=== PATIENT | male | born 1965 | race Caucasian/White ===

== ENCOUNTER 2016-11-22 14:52 | Emergency (ER) | payer OTHER ==
[2016-11-22 15:04] VITALS: BP 148/97; PULSE 91; TEMP 98.6; BMI 34.5
[2016-11-22] MEDS ORDERED: CEPHALEXIN MONOHYDRATE 500 MG CAPSULE (UD) PO ONE (15:16)
--- NOTE | 2016-11-22 15:16 | PDOC ---
History of Present Illness - General Chief Complaint: Bite Stated Complaint: rt fa bug bite Time Seen by Provider: 11/22/16 15:00 History Source: Patient, Old Records Exam Limitations: No Limitations - History of Present Illness Initial Comments: 11/22/16 15:11 51-year-old male with no significant past medical history presents to the emergency department for evaluation of a bee sting to his right upper extremity. The patient states that 3 days ago he was stung by a bee to the flexor surface of his right forearm and subsequently he has had increased redness and streaking up his arm. He denies fevers or chills. The patient was seen at an urgent care today who referred him to the ED for further evaluation. Past History - Past Medical History Allergies/Adverse Reactions: Allergies Allergy/AdvReac Type Severity Reaction Status Date / Time No Known Allergies Allergy Verified 11/22/16 14:57 Home Medications: Ambulatory Orders Cephalexin [Keflex] 500 mg PO QID #30 capsule 11/22/16 HTN: Yes (white coat syndrome) - Surgical History Appendectomy: Yes - Psycho/Social/Smoking Cessation Hx Anxiety: No Suicidal Ideation: No Smoking History: Never smoked Have you smoked in the past 12 months: No Number of Cigarettes Smoked Daily: 0 Information on smoking cessation initiated: No Hx Alcohol Use: No Drug/Substance Use Hx: No Substance Use Type: None Review of Systems - Review of Systems Able to Perform ROS?: Yes Is the patient limited Japanese proficient: No Constitutional: No: Symptoms Reported HEENTM: No: Symptoms Reported Respiratory: No: Symptoms reported Cardiac (ROS): No: Symptoms Reported ABD/GI: No: Symptoms Reported : No: Symptoms Reported Musculoskeletal: No: Symptoms Reported Integumentary: Yes: Symptoms Reported, See HPI *Physical Exam - Vital Signs Last Vital Signs Temp Pulse Resp BP Pulse Ox 98.6 F 91 H 20 148/97 97 11/22/16 14:53 11/22/16 14:53 11/22/16 14:53 11/22/16 14:53 11/22/16 14:53 - Physical Exam Comments: 11/22/16 15:12 GENERAL: Well developed, well nourished. Awake and alert. No acute distress. EXTREMITIES: RUE: There is a 4 x 4 cm area of erythema and induration to the right wrist with a puncture site where the patient was stung. There is erythema streaking up the inner arm just above the elbow. There are no areas of fluctuance. Cooperative. Good eye contact. Appropriate mood and affect. Medical Decision Making - Medical Decision Making 11/22/16 15:13 51-year-old male with no significant past medical history with cellulitis after a bee sting. The patient is afebrile and is well-appearing; he is immunocompetent. Plan: 1. We'll start the patient on Keflex 500 mg 4 times a day for 7 days 2. Follow-up with Dr. Perez this week 3. Return to the emergency department if symptoms persist, worsen, or new symptoms arise. *DC/Admit/Observation/Transfer Diagnosis at time of Disposition: Cellulitis of right forearm, Bee sting - Discharge Dispostion Disposition: HOME Condition at time of disposition: Stable Admit: No - Prescriptions Prescriptions: Cephalexin [Keflex] 500 mg PO QID #30 capsule - Patient Instructions Printed Discharge Instructions: DI for Insect Bites and Stings Additional Instructions: You're being prescribed an antibiotic for a skin infection called cellulitis following a bee sting. The antibiotic is Keflex 500 mgtake 1 tablet 4 times daily for the next week. Please follow-up with your primary care physician this week and return to the emergency department if your symptoms persist, worsen, or new symptoms arise.
[2016-11-22] MEDS ORDERED: CEPHALEXIN MONOHYDRATE 500 MG CAPSULE (UD) ONE (15:26)
== END 2016-11-22 15:38 | disposition home or self-care (01) ==
LOC: FER 14:52
DX: L03.113 Cellulitis of right upper limb (principal); S40.861A Insect bite (nonvenomous) of right upper arm, initial encounter; W57.XXXA Bitten or stung by nonvenomous insect and other nonvenomous arthropods, initial encounter; Y93.9 Activity, unspecified; Y92.9 Unspecified place or not applicable; R03.0 Elevated blood-pressure reading, without diagnosis of hypertension
CPT/HCPCS: 99281-25

== ENCOUNTER 2018-01-27 07:39 | Day surgery (SDC) | payer OTHER ==
[2018-01-20 11:34] VITALS: BMI 31.1
[2018-01-27 07:58] VITALS: TEMP 98.3
[2018-01-27] MEDS ORDERED: PROPOFOL 20 ML ONE (08:08)
[2018-01-27 09:40] VITALS: BP 145/84; PULSE 76
--- NOTE | 2018-02-01 11:09 | PATH ---
Surgical Pathology Report Patient Name: BENJA ESCAMILLA [facility]. Rec. #: [id number] /Age/Gender: 1965 (Age: 52) / M Account: [id number] Location: [facility] Taken: 01/27/2018 Received: 01/27/2018 Reported: 02/01/2018 Physicians: Francisco J Cross M.D. Specimen(s) Received A: SPLENIC FLEXURE B: PROXIMAL SIGMOID C: BX SIGMOID D: DISTAL SIGMOID Clinical History Polyps Final Diagnosis A. SPLENIC FLEXURE, BIOPSY: TUBULAR ADENOMA. B. PROXIMAL SIGMOID, BIOPSY: TUBULAR ADENOMA. FRAGMENTS OF INFLAMMATORY/ GRANULATION TISSUE POLYP. C. 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 THE RESECTED POLYP STALK MARGIN IS UNINVOLVED BY HIGH GRADE DYSPLASIA. D. 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 THE RESECTED POLYP BASE/MARGIN IS UNINVOLVED BY HIGH GRADE DYSPLASIA. Electronically Signed Merlyn Sharif M.D. Gross Description A. Received in formalin, labeled "splenic flexure" is one piece of nicole tissue measuring 0.3 cm in greatest dimension. Entirely submitted in one cassette. B. Received in formalin, labeled "proximal sigmoid" are five pieces of nicole tissue ranging from 0.2-0.8 cm in greatest dimension. Entirely submitted in one cassette. C. Received in formalin, labeled "sigmoid" is a 2.2 x 1.5 x 1.0 cm dark brown polyp with identifiable stalk. The stalk is inked black, the polyp is quadrisected and the specimen is entirely submitted in three cassettes. D. Received in formalin, labeled "distal sigmoid" is a 0.9 x 0.6 x 0.5 cm dark nicole polyp. The resection margin is inked black, the polyp is bisected and entirely submitted in one cassette. AE/01/31/2018 ebram/01/31/2018
== END 2018-01-27 09:40 | disposition home or self-care (01) ==
LOC: FASU-ENDO 07:39
PROVIDERS: ATTEND Internal Medicine Gastroenterology
PROC: 0DBN8ZX Excision of Sigmoid Colon, Via Natural or Artificial Opening Endoscopic, Diagnostic (ICD-10-PCS; 2018-01-27)
PROC: 0DBN8ZX Excision of Sigmoid Colon, Via Natural or Artificial Opening Endoscopic, Diagnostic (ICD-10-PCS; principal; 2018-01-27 08:27)
PROC: 0DBL8ZX Excision of Transverse Colon, Via Natural or Artificial Opening Endoscopic, Diagnostic (ICD-10-PCS; 2018-01-27 08:27)
DX: Z12.11 Encounter for screening for malignant neoplasm of colon (principal); D12.3 Benign neoplasm of transverse colon; K57.30 Diverticulosis of large intestine without perforation or abscess without bleeding; D12.5 Benign neoplasm of sigmoid colon
CPT/HCPCS: 88305-TC

== ENCOUNTER 2018-05-17 18:01 | Inpatient (IN) | payer OTHER ==
[2018-05-17] MEDS ORDERED: ADENOSINE 6 MG/2 ML VIAL IVPUSH ONE ×2 (18:24→18:59)
--- NOTE | 2018-05-17 18:43 | PDOC ---
History of Present Illness - General Chief Complaint: Chest Pain Stated Complaint: CHEST PAIN Time Seen by Provider: 05/17/18 18:10 - History of Present Illness Initial Comments: 53 year old male with PMH of HTN presenting with chest discomfort for the pat day. He took some antacids because he believed it as related to his poor eating habits and in particular a bunch of "junk" that he ate the day before. He describes the pain as a discomfort that is to related to position, or activity but sometimes more bothersome with deep inspiration. He denies any recent stimulant or other supplement use. He admits to 25 lb weight gain over the past few months. Of note he had a stress test done 5-6 months prior that he did not have 05/17/18 18:54 Past History - Past Medical History Allergies/Adverse Reactions: Allergies Allergy/AdvReac Type Severity Reaction Status Date / Time No Known Allergies Allergy Verified 05/17/18 18:03 Home Medications: Ambulatory Orders Amlodipine Besylate [Norvasc -] 10 mg PO DAILY 05/17/18 Anemia: No Asthma: No Cancer: No Cardiac Disorders: No CVA: No COPD: No CHF: No Dementia: No Diabetes: No GI Disorders: Yes (DIVERTICULITIS-HOSPITALIZED 10/13) Disorders: No HTN: Yes (RECENTLY PLACED ON MEDICATION,DOESN'T REMEMBER NAME) Hypercholesterolemia: No Liver Disease: No Seizures: No Thyroid Disease: No - Surgical History Abdominal Surgery: No Appendectomy: No Cardiac Surgery: No Cholecystectomy: No Lung Surgery: No Neurologic Surgery: No Orthopedic Surgery: No - Suicide/Smoking/Psychosocial Hx Smoking History: Never smoked Have you smoked in the past 12 months: No Number of Cigarettes Smoked Daily: 0 Hx Alcohol Use: Yes (OCASIONAL) Drug/Substance Use Hx: No Substance Use Type: Alcohol Hx Substance Use Treatment: No Review of Systems - Review of Systems Constitutional: No: Chills, Diaphoresis, Fever HEENTM: No: Eye Pain, Blurred Vision, Tearing Respiratory: No: Cough, Orthopnea, Shortness of Breath, SOB with Exertion Cardiac (ROS): Yes: Chest Tightness. No: Irregular Heart Rate, Lightheadedness ABD/GI: No: Constipated, Diarrhea, Nausea, Vomiting : No: Burning, Dysuria, Discharge Musculoskeletal: No: Back Pain, Gout, Joint Pain Integumentary: No: Bruising, Change in Color Neurological: No: Headache, Numbness Psychiatric: No: Anxiety, Depression Hematologic/Lymphatic: No: Anemia, Blood Clots, Easy Bleeding *Physical Exam - Vital Signs Last Vital Signs Temp Pulse Resp BP Pulse Ox 98 F 96 H 18 143/99 99 05/17/18 18:01 05/17/18 18:01 05/17/18 18:01 05/17/18 18:01 05/17/18 18:01 - Physical Exam General Appearance: Yes: Nourished, Appropriately Dressed. No: Apparent Distress HEENT: positive: EOMI, MARK, Normal ENT Inspection, Normal Voice Neck: positive: Trachea midline, Normal Thyroid, Supple. negative: Tender, Rigid Respiratory/Chest: positive: Lungs Clear, Normal Breath Sounds. negative: Chest Tender, Respiratory Distress, Accessory Muscle Use Cardiovascular: positive: Regular Rhythm, Tachycardia Gastrointestinal/Abdominal: positive: Normal Bowel Sounds, Flat, Soft. negative : Tender Lymphatic: negative: Adenopathy, Tenderness Musculoskeletal: positive: Normal Inspection. negative: Decreased Range of Motion Extremity: positive: Normal Capillary Refill, Normal Inspection, Normal Range of Motion. negative: Tender Integumentary: positive: Normal Color, Dry, Warm Neurologic: positive: Fully Oriented, Alert, Normal Mood/Affect, Normal Response , Motor Strength 5/5 Moderate Sedation - Procedure Monitoring Vital Signs: Procedure Monitoring Vital Signs Temperature 98 F 05/17/18 18:01 Pulse Rate 96 H 05/17/18 18:01 Respiratory Rate 18 05/17/18 18:01 Blood Pressure 143/99 05/17/18 18:01 O2 Sat by Pulse Oximetry (%) 99 05/17/18 18:01 ED Treatment Course - LABORATORY CBC & Chemistry Diagram: 05/17/18 18:40 05/17/18 18:40 *DC/Admit/Observation/Transfer - Discharge Dispostion Condition at time of disposition: Stable - Referrals Referrals: Ron Perez MD [Primary Care Provider] - - Patient Instructions - Post Discharge Activity
[2018-05-17 18:56] LABS: BASO % 0.8 % (0-2.0); EOS % 0.6 % (0-4.5); HEMATOCRIT 46.8 % (35.4-49); HEMOGLOBIN 15.3 GM/dl (11.7-16.9); LYMPH % 23.5 % (8-40); MCH 26.5 pg (25.7-33.7); MCHC 32.8 g/dl (32.0-35.9); MEAN CELL VOLUME 80.7 fl (80-96); MEAN PLT VOLUME 9.3 fl (7.5-11.1); MONO % 6.9 % (3.8-10.2); NEUT % 68.2 % (42.8-82.8); PLATELET COUNT 313 K/MM3 (134-434); RBC 5.79 M/mm3 (4.00-5.60); RDW 14.1 % (11.9-15.9); WHITE BLOOD COUNT 16.3 K/mm3 (4.0-10.8)
--- NOTE | 2018-05-17 19:00 | PDOC ---
Attending Attestation - Resident Resident Name: Bam Alcaraz - ED Attending Attestation I have performed the following: I have examined & evaluated the patient, The case was reviewed & discussed with the resident, I agree w/resident's findings & plan - HPI HPI: 05/17/18 18:55 53-year-old male with history of hypertension, no known CAD with normal nuclear stress 3-4 months ago, presents today with chest heaviness and shortness of breath on exertion since about 4 AM. The patient has been in his usual state of normal health, awoke around 4 AM with the above symptoms and has noted some intermittent mild of sternal chest discomfort and shortness of breath on exertion throughout the day, so presents for evaluation. No cough, no history of exertional chest pain, no leg swelling. Denies any additional caffeine or any sort of stimulants, no excessive alcohol or drug use, denies any history of arrhythmia. No PE risk factors. - Physicial Exam PE: 05/17/18 18:57 Blood pressure within normal limits, heart rate 200 Placed immediately on monitor, EKG obtained with now a complex SVT Patient gave above history, otherwise is well-appearing and conversant speaking full sentences without any diaphoresis or acute respiratory distress Heart is regular severe tachycardia Lungs are clear Trace pretibial edema without calf tenderness Neurologically intact - Critical Care Time Total Critical Care Time: 80 Critical Care Statement: The care of this patient involved high complexity decision making to prevent further life threatening deterioration of the patient 's condition and/or to evaluate & treat vital organ system(s) failure or risk of failure. - Medical Decision Making 05/17/18 18:59 53-year-old male with history of hypertension presents with SVT, likely since this morning, with mild to moderate symptoms. Hemodynamically stable, seen immediately upon arrival. Placed on monitor, EKG obtained, and discussed risks/benefits of adenosine administration. Patient was given adenosine 6 mg IV push with appropriate response and resolution of SVT to sinus with rate of 105 and no evidence of ischemia on EKG. Patient tolerated the procedure well, symptoms began to improve. Check labs, EKG, chest x-ray We'll need telemetry monitoring for any cardiac injury or any further arrhythmia <Adriel Otto - Last Filed: 05/17/18 18:55> - HPI HPI: 05/17/18 19:20 The patient is a 53 year old male, with a significant past medical history of HTN of who presents to the emergency department with chest pain associated with SOB and discomfort since this morning. The patient notes the chest discomfort woke him up at 4am this morning because he felt like his bed was vibrating. The patient took tylenol with no relief. The patient notes he feels winded when walking. The patient states he ate a crazy meal yesterday but denies drinking ( last drink was last ). Patient notes he saw a cavalry scout before and his last nuclear stress test was (Feb 2018). The patient denies headache or dizziness. The patient denies fever, chills, nausea, vomit, diarrhea or constipation The patient denies dysuria, frequency, urgency or hematuria. Allergies: NKDA Past surgical history: Appendectomy (at age 11) Social history: Occasional drinker (twice a month) PCP: Dr. Ron Perez <Gage Duarte - Last Filed: 05/17/18 19:21> Heart Score/ECG Review #1 05/17/18 19:00 narrow complex SVT at 199 #2 General ECG Interpretation: Sinus Rhythm (slight tachy), Normal Intervals, No acute ischemic changes <Adriel Otto - Last Filed: 05/17/18 18:55> Attestations - Attestations 05/17/18 19:21 Documentation prepared by Gage Duarte, acting as ophthalmic medical assistant for Adriel Otto MD, <Gage Duarte - Last Filed: 05/17/18 19:21>
[2018-05-17 19:04] LABS: ALBUMIN 3.8 g/dl (3.4-5.0); ALK PHOS 93 U/L (45-117); ANION GAP 13 MMOL/L (8-16); BLOOD UREA NITROGEN 15 mg/dl (7-18); CALCIUM 9.2 mg/dl (8.5-10); CHLORIDE 101 mmol/L (98-107); CO2 21 mmol/L (21-32); GLUCOSE,RANDOM 132 mg/dl (74-106); POTASSIUM 4.2 mmol/L (3.5-5.1); SGOT/AST 19 U/L (15-37); SGPT/ALT 21 U/L (13-61); SODIUM 135 mmol/L (136-145); TOT PROT 7.1 g/dl (6.4-8.2)
[2018-05-17] MEDS ORDERED: SODIUM CHLORIDE 0.9% 500 ML INFUS.BAG IV ONE (19:07)
[2018-05-17 19:11] LABS: ACTIVATED PTT 26.5 SECONDS (25.2-36.5)
[2018-05-17] MEDS ORDERED: ASPIRIN 325 MG TABLET PO ONE (19:13)
[2018-05-17 19:15] LABS: INR 1.23 (0.82-1.09); PROTHROMBIN TIME (PATIENT) 13.7 SEC (10.2-13.0)
[2018-05-17] MEDS ORDERED: ASPIRIN 325 MG TABLET ONE (19:16)
[2018-05-17] MEDS ORDERED: ACETAMINOPHEN 500 MG TABLET (FP) PO ONE (19:16)
[2018-05-17] MEDS ORDERED: ACETAMINOPHEN 500 MG TABLET (FP) ONE (19:17)
--- NOTE | 2018-05-17 19:56 | PDOC ---
*Physical Exam - Vital Signs Last Vital Signs Temp Pulse Resp BP Pulse Ox 98 F 108 H 18 127/93 98 05/17/18 18:01 05/17/18 19:23 05/17/18 19:23 05/17/18 19:23 05/17/18 19:23 ED Treatment Course - LABORATORY CBC & Chemistry Diagram: 05/18/18 07:15 05/18/18 07:15 - ADDITIONAL ORDERS Additional order review: Laboratory Results 05/17/18 05/17/18 05/17/18 18:40 18:40 18:40 PT with INR 13.7 H INR 1.23 H PTT (Actin FS) 26.5 Sodium 135 L Potassium 4.2 Chloride 101 Carbon Dioxide 21 Anion Gap 13 BUN 15 Creatinine 1.0 Creat Clearance w eGFR > 60 Random Glucose 132 H Calcium 9.2 Total Bilirubin 1.0 AST 19 ALT 21 Alkaline Phosphatase 93 Creatine Kinase 71 Troponin I 0.14 H Total Protein 7.1 Albumin 3.8 05/17/18 18:40 RBC 5.79 H MCV 80.7 MCHC 32.8 RDW 14.1 MPV 9.3 Neutrophils % 68.2 Lymphocytes % 23.5 Monocytes % 6.9 Eosinophils % 0.6 Basophils % 0.8 - Medications Given in the ED: ED Medications Discontinued Medications Generic Name Dose Route Start Last Admin Trade Name Daryl PRN Reason Stop Dose Admin Acetaminophen 1,000 mg 05/17/18 19:16 05/17/18 19:22 Tylenol - PO 05/17/18 19:17 1,000 mg ONCE ONE Administration Adenosine 6 mg 05/17/18 18:59 05/17/18 18:34 Adenocard - IVPUSH 05/17/18 19:00 6 mg ONCE ONE Administration Aspirin 325 mg 05/17/18 19:13 05/17/18 19:22 Asa - PO 05/17/18 19:14 325 mg ONCE ONE Administration Sodium Chloride 1,000 ml 05/17/18 19:07 05/17/18 18:40 Normal Saline - IV 05/17/18 19:08 1,000 ml ONCE ONE Administration Progress Note - Progress Note Progress Note: Note opened in order to document attempted called to consult cardiology. Hospitalist requested that we attempt to call cardiology. was called at [phone]. His service answered the call and attempted to reach him. They were unable to reach him so I called his home phone number at approximately 10 minutes later. He is answering machine picked up and I left a message requesting that he call us in regards to this patient. *DC/Admit/Observation/Transfer Diagnosis at time of Disposition: SVT (supraventricular tachycardia) Chest pain Qualifiers: Chest pain type: unspecified Qualified Code(s): R07.9 - Chest pain, unspecified - Discharge Dispostion Disposition: HOME Condition at time of disposition: Improved Decision to Admit order: Yes - Prescriptions - Referrals - Patient Instructions - Post Discharge Activity
[2018-05-17 22:21] VITALS: BMI 37.1
[2018-05-17] MEDS: HEPARIN NA (PORCINE) 5,000 UNITS/ML 1ML VIAL SQ SCH (23:11)
--- NOTE | 2018-05-17 23:27 | HP ---
Admitting History and Physical - Primary Care Physician PCP: Ron Perez (CArdiology: Dr. Lott [phone]) - Admission Chief Complaint: chest pain History of Present Illness: 53 year old male with PMH of HTN presents to [place] ED for evaluation of chest pain and dyspnea. Mr. Garcia reports consuming spicy foods late afternoon 05/16 and began to experience "heartburn symptoms- which was reported as burning in middle of chest", he did not take any meds and decided to go to bed. At 4am, he awoke with left sided chest pain and decided to take peptobismol x 2 and return to bed. He awake late morning and decided to go to work in [place]. 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 He reports chest pain as a "sharp pain" /10, which is worse with laying flat. Pt decided to leave work and return home to rest at 4pm, when he awoke at 6pm, symptoms were still present and he then decided to present to ED. Of note, pt states, he had finally gotten over a cold lasting 5 weeks, but currently denies fever/chills/N/V. Pt has a stress test with his cardiology Jan 2018 which was negative for ischemia. IN ED: EKG with narrow complex tachycardia ( EKG reads 199bpm, but in reality appears to be 145bpm). He was given adenosine 6mg which broke SVT. He remained hemodynamically stable throughout entire episode. Labs: WBC 16.3, Trop x 2 = 0.14. Pt admitted to telemetry. Cardiology consulted. History Source: Patient Limitations to Obtaining History: No Limitations - Past Medical History Cardiovascular: Yes: HTN Gastrointestinal: Yes: Diverticulitis (medically managed August 2017) ENT: Yes: Allergic Rhinitis (occasionally) - Past Surgical History Past Surgical History: Yes: Appendectomy (at age 13), Upper Endoscopy. No: Colonoscopy (01/2018: 4 polyps resected) - Advance Directives Advance Directives: Yes: Health Care Proxy (: Karolyn Garcia [phone]) - Smoking History Smoking history: Never smoked Have you smoked in the past 12 months: No Aproximately how many cigarettes per day: 0 - Alcohol/Substance Use Hx Alcohol Use: Yes (OCASIONAL) History of Substance Use: reports: None - Social History Usual Living Arrangement: Yes: With Spouse, With Child ADL: Independent Occupation: construction trades contractor History of Recent Travel: No Home Medications - Allergies Allergies/Adverse Reactions: Allergies Allergy/AdvReac Type Severity Reaction Status Date / Time No Known Allergies Allergy Verified 05/17/18 18:03 - Home Medications Home Medications: Ambulatory Orders Amlodipine Besylate [Norvasc -] 10 mg PO DAILY 05/17/18 Review of Systems - Review of Systems Constitutional: reports: Diaphoresis Eyes: reports: No Symptoms HENT: reports: No Symptoms Neck: reports: No Symptoms Cardiovascular: reports: Chest Pain, Shortness of Breath Respiratory: reports: Orthopnea, SOB Gastrointestinal: reports: Indigestion Genitourinary: reports: No Symptoms Breasts: reports: No Symptoms Reported Musculoskeletal: reports: No Symptoms Integumentary: reports: No Symptoms Neurological: reports: No Symptoms Endocrine: reports: No Symptoms Hematology/Lymphatic: reports: No Symptoms Psychiatric: reports: No Symptoms Physical Examination Vital Signs: Vital Signs Temperature 98.1 F 05/17/18 22:16 Pulse Rate 97 H 05/17/18 22:16 Respiratory Rate 19 05/17/18 22:16 Blood Pressure 120/78 05/17/18 22:16 O2 Sat by Pulse Oximetry (%) 95 05/17/18 22:16 Constitutional: Yes: Well Nourished, No Distress, Calm Eyes: Yes: Conjunctiva Clear, EOM Intact, PERRL HENT: Yes: Atraumatic, Normocephalic Neck: Yes: Supple, Trachea Midline Cardiovascular: Yes: Regular Rate and Rhythm, Tachycardia Respiratory: Yes: Regular, CTA Bilaterally Gastrointestinal: Yes: Normal Bowel Sounds, Soft ...Rectal Exam: Yes: Deferred Musculoskeletal: Yes: WNL Extremities: Yes: WNL Edema: No Peripheral Pulses WNL: Yes Peripheral Pulses: Left Radial: 2+, Right Radial: 2+, Left Doralis Pedis: 2+, Right Dorsalis Pedis: 2+ Integumentary: Yes: WNL Neurological: Yes: Alert, Oriented ...Motor Strength: WNL Psychiatric: Yes: Alert, Oriented Labs: CBC, BMP 05/17/18 18:40 05/17/18 18:40 Imaging - Results Chest X-ray: Pending (CXR 05/17) EKG: Report Reviewed (EKG (my read) @ 6:19pm SVT 140bpm EKG @ 6:36pm ST 113bpm (after adenosine)) Problem List - Problems (1) HTN (hypertension) Assessment/Plan: cardiac diet norvasc 10mg daily continuous tele Code(s): I10 - ESSENTIAL (PRIMARY) HYPERTENSION (2) Elevated troponin Assessment/Plan: Symptoms are occuring in the setting of resolving protracted URI, would consider katerina/pericarditis, especially in light of elevated WBC and neg nuclear stress cardiology consulted trend troponin. If continues to uptrend d/c SC heparin and start IV heparin drip Patient would like input from his private space buyer: Dr. Lay ). spoke with covering physician Dr. Bush who reviewed recent stress test done Feb 2018 which was negative. He will relay to Dr. Lott that his patient is hospitalized at [facility]. start ASA 81mg daily Code(s): R74.8 - ABNORMAL LEVELS OF OTHER SERUM ENZYMES (3) Chest pain Assessment/Plan: PRN sl nitro EKG PRN echo in AM lipid panel/A1c in AM for risk stratification Code(s): R07.9 - CHEST PAIN, UNSPECIFIED Qualifiers: Chest pain type: unspecified Qualified Code(s): R07.9 - Chest pain, unspecified (4) SVT (supraventricular tachycardia) Assessment/Plan: pt currently rate controlled Will continue to monitor on tele start low dose metoprolol 12.5mg daily Code(s): I47.1 - SUPRAVENTRICULAR TACHYCARDIA Assessment/Plan Bowel regimen: senna and colace DVT PPX: SC heparin TID GI PPX: protonix 40mg daily DISPO: Full code Visit type - Emergency Visit Emergency Visit: Yes ED Registration Date: 05/17/18 Care time: The patient presented to the Emergency Department on the above date and was hospitalized for further evaluation of their emergent condition. - New Patient This patient is new to me today: Yes Date on this admission: 05/18/18 - Critical Care Critical Care patient: No
[2018-05-17] MEDS ORDERED: NITROGLYCERIN SUBLINGUAL 1/150 0.4 MG TAB SL PRN (23:42)
[2018-05-17] MEDS ORDERED: MELATONIN 5 MG TABLETS PO ONE (23:58)
[2018-05-18] MEDS: ACETAMINOPHEN 325 MG TABLET (FP) PO PRN ×3 (00:27→14:51)
[2018-05-18] MEDS: HEPARIN NA (PORCINE) 5,000 UNITS/ML 1ML VIAL SQ SCH ×2 (06:04→14:50)
[2018-05-18 07:53] LABS: MCH 26.1 pg (25.7-33.7); PLATELET COUNT 217 K/MM3 (134-434); WHITE BLOOD COUNT 8.3 K/mm3 (4.0-10.8)
[2018-05-18 08:08] LABS: BASO % 0.5 % (0-2.0); EOS % 2.1 % (0-4.5); HEMATOCRIT 40.6 % (35.4-49); LYMPH % 28.6 % (8-40); MEAN CELL VOLUME 81.5 fl (80-96); MONO % 9.8 % (3.8-10.2); RBC 4.98 M/mm3 (4.00-5.60); RDW 13.8 % (11.9-15.9)
[2018-05-18] MEDS: metoPROLOL SUCCINATE 25 MG TAB.SR.24H (FP) PO SCH ×2 (08:18→09:25)
--- NOTE | 2018-05-18 08:40 | CON.CARD ---
Consult Consult Specialty:: cardiology Reason for Consultation:: chest pain; +TNI - History of Present Illness History of Present Illness: 53 year old male with PMH of HTN presenting with chest discomfort for the pat day. He took some antacids because he believed it as related to his poor eating habits and in particular a bunch of "junk" that he ate the day before. He describes the pain as a discomfort that is to related to position, or activity but sometimes more bothersome with deep inspiration. He denies any recent stimulant or other supplement use. He admits to 25 lb weight gain over the past few months. Of note he had a stress test done 5-6 months prior that he did not have 05/17/18 18:54 - History Source History Provided By: Medical Record - Past Medical History Cardio/Vascular: Yes: HTN Gastrointestinal: Yes: Diverticulitis (medically managed August 2017) ENT: Yes: Allergic Rhinitis (occasionally) - Past Surgical History Past Surgical History: Yes: Appendectomy (at age 13), Upper Endoscopy. No: Colonoscopy (01/2018: 4 polyps resected) - Alcohol/Substance Use Hx Alcohol Use: Yes (OCASIONAL) History of Substance Use: reports: None - Smoking History Smoking history: Never smoked Have you smoked in the past 12 months: No Aproximately how many cigarettes per day: 0 - Social History ADL: Independent Occupation: landscape contractor History of Recent Travel: No Home Medications - Allergies Allergies/Adverse Reactions: Allergies Allergy/AdvReac Type Severity Reaction Status Date / Time No Known Allergies Allergy Verified 05/17/18 18:03 - Home Medications Home Medications: Ambulatory Orders Amlodipine Besylate [Norvasc -] 10 mg PO DAILY 05/17/18 Vital Signs: Vital Signs Temperature 98.1 F 05/18/18 06:00 Pulse Rate 84 05/18/18 06:00 Respiratory Rate 19 05/18/18 06:00 Blood Pressure 128/82 05/18/18 06:00 O2 Sat by Pulse Oximetry (%) 100 05/18/18 06:00 - Other Data Labs, Other Data: CBC, BMP 05/18/18 07:15 INR, PTT INR 1.23 (0.82-1.09) H 05/17/18 18:40 Troponin, BNP 05/17/18 05/17/18 05/18/18 18:40 23:30 07:15 Troponin I 0.14 H 0.14 H 0.10 H Troponin, BNP 05/17/18 05/17/18 05/18/18 18:40 23:30 07:15 Troponin I 0.14 H 0.14 H 0.10 H Problem List - Problems (1) Chest pain Code(s): R07.9 - CHEST PAIN, UNSPECIFIED Qualifiers: Chest pain type: unspecified Qualified Code(s): R07.9 - Chest pain, unspecified (2) Elevated troponin Assessment/Plan: TNI <0.02 in 2017 records; now 0.14-->0.14-->0.10; negative CK. EKG: Pt with multiple CAD risks. For stress MIBI today. Code(s): R74.8 - ABNORMAL LEVELS OF OTHER SERUM ENZYMES (3) Obesity Code(s): E66.9 - OBESITY, UNSPECIFIED Qualifiers: Obesity type: due to excess calories Obesity classification: adult class 1 (BMI 30 - 34.9) Serious obesity comorbidity presence: without serious comorbidity Body mass index: BMI 34.0-34.9 Qualified Code(s): E66.09 - Other obesity due to excess calories; Z68.34 - Body mass index (BMI) 34.0-34.9, adult (4) Sleep apnea Assessment/Plan: r/o w2ith sleep studies, if not already done. Code(s): G47.30 - SLEEP APNEA, UNSPECIFIED (5) Hyperlipidemia Assessment/Plan: lipid profile pending. Code(s): E78.5 - HYPERLIPIDEMIA, UNSPECIFIED (6) HTN (hypertension) Assessment/Plan: on metoprolol ER for HTN; ? hx PSVT F/u BP and HR ECHO for LVEF, chamber sizes, valve status. Code(s): I10 - ESSENTIAL (PRIMARY) HYPERTENSION (7) Hyperglycemia Assessment/Plan: f/u fasting glucose, HGBA1c. Code(s): R73.9 - HYPERGLYCEMIA, UNSPECIFIED (8) PSVT (paroxysmal supraventricular tachycardia) Code(s): I47.1 - SUPRAVENTRICULAR TACHYCARDIA
[2018-05-18 08:41] LABS: ALBUMIN 3.2 g/dl (3.4-5.0); ALK PHOS 75 U/L (45-117); ANION GAP 10 MMOL/L (8-16); BILIRUBIN,TOTAL 0.9 mg/dl (0.2-1); BLOOD UREA NITROGEN 16 mg/dl (7-18); CALCIUM 8.5 mg/dl (8.5-10); CHLORIDE 101 mmol/L (98-107); CHOLESTEROL 143 mg/dl (50-200); CO2 25 mmol/L (21-32); GLUCOSE,RANDOM 161 mg/dl (74-106); HDL CHOLESTEROL 32 mg/dl (40-60); MAGNESIUM 1.9 mg/dL (1.8-2.4); POTASSIUM 4.1 mmol/L (3.5-5.1); SGOT/AST 17 U/L (15-37); SGPT/ALT 17 U/L (13-61); SODIUM 136 mmol/L (136-145); TOT PROT 6.3 g/dl (6.4-8.2); TRIGLYCERIDES 187 mg/dl (0-150)
[2018-05-18] MEDS ORDERED: DOCUSATE SODIUM 100 MG CAPSULE (FP) PO SCH (10:00)
[2018-05-18] MEDS ORDERED: PANTOPRAZOLE 40 MG TABLET (FP) PO SCH (10:00)
[2018-05-18] MEDS ORDERED: amLODIPine BESYLATE 10 MG TABLET (FP) PO SCH (10:00)
[2018-05-18] MEDS ORDERED: ASPIRIN 81 MG CHEWABLE TABLETS PO SCH (10:00)
[2018-05-18] MEDS ORDERED: metoPROLOL SUCCINATE 25 MG TAB.SR.24H (FP) PO SCH (10:30)
--- NOTE | 2018-05-18 14:17 | ECHO ---
Name: BENJA ESCAMILLA Exam:Adult Echocardiogram Study Date: 05/18/2018 11:31 AM Age: 53 yrs Reason For Study: Palpitations Height: 72 in Weight: 273 lb BSA: 2.4 m2 MMode/2D Measurements & Calculations IVSd: 0.99 cm Ao root diam: 3.1 cm LVIDd: 5.3 cm LA dimension: 3.9 cm LVIDs: 3.8 cm LVPWd: 1.1 cm EDV(Teich): 134.4 ml LVOT diam: 2.2 cm ESV(Teich): 62.0 ml Doppler Measurements & Calculations MV E max rishi: 69.6 cm/sec Ao V2 max: 106.0 cm/sec MV A max rishi: 70.2 cm/sec Ao max P.5 mmHg MV E/A: 0.99 ELIZABETH(V,D): 2.8 cm2 LV V1 max P.4 mmHg LV V1 max: 77.4 cm/sec Left Ventricle The left ventricular size, thickness and function are normal. Ejection Fraction = 55%. The transmitra l spectral Doppler flow pattern is suggestive of impaired LV relaxation. The left ventricular wall marquise on is normal. Right Ventricle The right ventricular systolic function is normal. Atria Borderline left atrial enlargement. Right atrial size is normal. Mitral Valve There is trace mitral regurgitation. Tricuspid Valve There is trace tricuspid regurgitation. Pulmonic Valve The pulmonic valve is not well visualized. Trace pulmonic valvular regurgitation. Great Vessels The aortic root is normal size. Pericardium/Pleura There is no pericardial effusion. Interpretation Summary Ejection Fraction = 55%. The pulmonic valve is not well visualized. Trace pulmonic valvular regurgitation. There is trace tricuspid regurgitation. The right ventricular systolic function is normal. Borderline left atrial enlargement. Right atrial size is normal. The transmitral spectral Doppler flow pattern is suggestive of impaired LV relaxation. The left ventricular wall motion is normal. There is trace mitral regurgitation. There is no pericardial effusion. The aortic root is normal size. Mitch Santos MD 05/18/2018 02:16 PM
--- NOTE | 2018-05-18 16:08 | PN ---
Physical Exam: SUBJECTIVE: Patient seen and examined OBJECTIVE: Vital Signs Period Temp Pulse Resp BP Sys/Alcazar Pulse Ox Last 24 Hr 98 F-98.9 F 84-187 17-19 111-144/73-99 95-100 GENERAL: The patient is awake, alert, and fully oriented, in no acute distress. HEAD: Normal with no signs of trauma. EYES: PERRL, extraocular movements intact, sclera anicteric, conjunctiva clear. No ptosis. ENT: Ears normal, nares patent, oropharynx clear without exudates, moist mucous membranes. NECK: Trachea midline, full range of motion, supple. LUNGS: Breath sounds equal, clear to auscultation bilaterally, no wheezes, no crackles, no accessory muscle use. HEART: Regular rate and rhythm, S1, S2 without murmur, rub or gallop. ABDOMEN: Soft, nontender, nondistended, normoactive bowel sounds, no guarding, no rebound, no hepatosplenomegaly, no masses. EXTREMITIES: 2+ pulses, warm, well-perfused, no edema. NEUROLOGICAL: Cranial nerves II through XII grossly intact. Normal speech, gait not observed. PSYCH: Normal mood, normal affect. SKIN: Warm, dry, normal turgor, no rashes or lesions noted Laboratory Results - last 24 hr 05/17/18 05/17/18 05/17/18 18:40 18:40 18:40 WBC 16.3 H RBC 5.79 H Hgb 15.3 Hct 46.8 MCV 80.7 MCH 26.5 MCHC 32.8 RDW 14.1 Plt Count 313 MPV 9.3 Absolute Neuts (auto) 11.2 Neutrophils % 68.2 Lymphocytes % 23.5 Monocytes % 6.9 Eosinophils % 0.6 Basophils % 0.8 PT with INR 13.7 H INR 1.23 H PTT (Actin FS) 26.5 Sodium 135 L Potassium 4.2 Chloride 101 Carbon Dioxide 21 Anion Gap 13 BUN 15 Creatinine 1.0 Creat Clearance w eGFR > 60 Random Glucose 132 H Hemoglobin A1c % Calcium 9.2 Phosphorus Magnesium Total Bilirubin 1.0 AST 19 ALT 21 Alkaline Phosphatase 93 Creatine Kinase 71 Troponin I Total Protein 7.1 Albumin 3.8 Triglycerides Cholesterol Total LDL Cholesterol HDL Cholesterol 05/17/18 05/17/18 05/18/18 18:40 23:30 06:48 WBC RBC Hgb Hct MCV MCH MCHC RDW Plt Count MPV Absolute Neuts (auto) Neutrophils % Lymphocytes % Monocytes % Eosinophils % Basophils % PT with INR INR PTT (Actin FS) Sodium Potassium Chloride Carbon Dioxide Anion Gap BUN Creatinine Creat Clearance w eGFR Random Glucose Hemoglobin A1c % Calcium Phosphorus Magnesium Total Bilirubin AST ALT Alkaline Phosphatase Creatine Kinase 48 Troponin I 0.14 H 0.14 H Total Protein Albumin Triglycerides Cholesterol Total LDL Cholesterol HDL Cholesterol 05/18/18 05/18/18 05/18/18 07:15 07:15 07:15 WBC 8.3 RBC 4.98 Hgb 13.0 Hct 40.6 MCV 81.5 MCH 26.1 MCHC 32.0 RDW 13.8 Plt Count 217 D MPV 9.0 Absolute Neuts (auto) 4.9 Neutrophils % 59.0 Lymphocytes % 28.6 D Monocytes % 9.8 Eosinophils % 2.1 D Basophils % 0.5 PT with INR INR PTT (Actin FS) Sodium 136 Potassium 4.1 Chloride 101 Carbon Dioxide 25 Anion Gap 10 BUN 16 Creatinine 1.0 Creat Clearance w eGFR > 60 Random Glucose 161 H Hemoglobin A1c % 8.1 H Calcium 8.5 Phosphorus 4.0 Magnesium 1.9 Total Bilirubin 0.9 AST 17 ALT 17 Alkaline Phosphatase 75 D Creatine Kinase Troponin I 0.10 H Total Protein 6.3 L Albumin 3.2 L Triglycerides 187 H Cholesterol 143 Total LDL Cholesterol 74 HDL Cholesterol 32 L Active Medications Generic Name Dose Route Start Last Admin Trade Name Freq PRN Reason Stop Dose Admin Acetaminophen 650 mg 05/17/18 22:46 05/18/18 14:51 Tylenol - PO 650 mg Q6H PRN Administration FEVER Amlodipine Besylate 10 mg 05/18/18 10:00 05/18/18 09:24 Norvasc - PO 10 mg DAILY [facility] Administration Aspirin 81 mg 05/18/18 10:00 05/18/18 09:24 Asa - PO 81 mg DAILY [facility] Administration Atorvastatin Calcium 20 mg 05/18/18 22:00 Lipitor - PO HS [facility] Docusate Sodium 100 mg 05/18/18 10:00 05/18/18 09:24 Colace - PO Not Given DAILY [facility] Heparin Sodium (Porcine) 5,000 unit 05/17/18 23:00 05/18/18 14:50 Heparin - SQ Not Given TID [facility] Metoprolol Succinate 25 mg 05/18/18 10:30 05/18/18 11:27 Toprol Xl - PO 25 mg DAILY [facility] Administration Nitroglycerin 0.4 mg 05/17/18 23:42 Nitrostat - SL Q5M PRN FOR CHEST PAIN Pantoprazole Sodium 40 mg 05/18/18 10:00 05/18/18 09:24 Protonix - PO Not Given DAILY [facility] Senna 2 tab 05/18/18 22:00 Senna - PO [facility] ASSESSMENT/PLAN:
--- NOTE | 2018-05-18 17:55 | DS ---
Physical Exam: SUBJECTIVE: Patient seen and examined OBJECTIVE: Vital Signs Period Temp Pulse Resp BP Sys/Alcazar Pulse Ox Last 24 Hr 98 F-98.9 F 84-187 17-19 111-144/73-99 95-100 PHYSICAL EXAM GENERAL: The patient is awake, alert, and fully oriented, in no acute distress. HEAD: Normal with no signs of trauma. EYES: PERRL, extraocular movements intact, sclera anicteric, conjunctiva clear. ENT: Ears normal, nares patent, oropharynx clear without exudates, moist mucous membranes. NECK: Trachea midline, full range of motion, supple. LUNGS: Breath sounds equal, clear to auscultation bilaterally, no wheezes, no crackles, no accessory muscle use. HEART: Regular rate and rhythm, S1, S2 without murmur, rub or gallop. ABDOMEN: Soft, nontender, nondistended, normoactive bowel sounds, no guarding, no rebound, no hepatosplenomegaly, no masses. EXTREMITIES: 2+ pulses, warm, well-perfused, no edema. NEUROLOGICAL: Cranial nerves II through XII grossly intact. Normal speech, gait not observed. PSYCH: Normal mood, normal affect. SKIN: Warm, dry, normal turgor, no rashes or lesions noted. LABS Laboratory Results - last 24 hr 05/17/18 05/17/18 05/17/18 18:40 18:40 18:40 WBC 16.3 H RBC 5.79 H Hgb 15.3 Hct 46.8 MCV 80.7 MCH 26.5 MCHC 32.8 RDW 14.1 Plt Count 313 MPV 9.3 Absolute Neuts (auto) 11.2 Neutrophils % 68.2 Lymphocytes % 23.5 Monocytes % 6.9 Eosinophils % 0.6 Basophils % 0.8 PT with INR 13.7 H INR 1.23 H PTT (Actin FS) 26.5 Sodium 135 L Potassium 4.2 Chloride 101 Carbon Dioxide 21 Anion Gap 13 BUN 15 Creatinine 1.0 Creat Clearance w eGFR > 60 Random Glucose 132 H Hemoglobin A1c % Calcium 9.2 Phosphorus Magnesium Total Bilirubin 1.0 AST 19 ALT 21 Alkaline Phosphatase 93 Creatine Kinase 71 Troponin I Total Protein 7.1 Albumin 3.8 Triglycerides Cholesterol Total LDL Cholesterol HDL Cholesterol 05/17/18 05/17/18 05/18/18 18:40 23:30 06:48 WBC RBC Hgb Hct MCV MCH MCHC RDW Plt Count MPV Absolute Neuts (auto) Neutrophils % Lymphocytes % Monocytes % Eosinophils % Basophils % PT with INR INR PTT (Actin FS) Sodium Potassium Chloride Carbon Dioxide Anion Gap BUN Creatinine Creat Clearance w eGFR Random Glucose Hemoglobin A1c % Calcium Phosphorus Magnesium Total Bilirubin AST ALT Alkaline Phosphatase Creatine Kinase 48 Troponin I 0.14 H 0.14 H Total Protein Albumin Triglycerides Cholesterol Total LDL Cholesterol HDL Cholesterol 05/18/18 05/18/18 05/18/18 07:15 07:15 07:15 WBC 8.3 RBC 4.98 Hgb 13.0 Hct 40.6 MCV 81.5 MCH 26.1 MCHC 32.0 RDW 13.8 Plt Count 217 D MPV 9.0 Absolute Neuts (auto) 4.9 Neutrophils % 59.0 Lymphocytes % 28.6 D Monocytes % 9.8 Eosinophils % 2.1 D Basophils % 0.5 PT with INR INR PTT (Actin FS) Sodium 136 Potassium 4.1 Chloride 101 Carbon Dioxide 25 Anion Gap 10 BUN 16 Creatinine 1.0 Creat Clearance w eGFR > 60 Random Glucose 161 H Hemoglobin A1c % 8.1 H Calcium 8.5 Phosphorus 4.0 Magnesium 1.9 Total Bilirubin 0.9 AST 17 ALT 17 Alkaline Phosphatase 75 D Creatine Kinase Troponin I 0.10 H Total Protein 6.3 L Albumin 3.2 L Triglycerides 187 H Cholesterol 143 Total LDL Cholesterol 74 HDL Cholesterol 32 L HOSPITAL COURSE: Date of Admission:05/17/18 Date of Discharge: 05/18/18 Echo: LV normal, EF 55%, impaired relaxation; RV normal; trace MR; trace TR; trace PI Minutes to complete discharge: 35 Discharge Summary Reason For Visit: SUPRAVENTRICULAR TACHYCARDIA Current Active Problems Chest pain (Acute) Elevated troponin (Acute) HTN (hypertension) (Acute) Hyperglycemia (Acute) Hyperlipidemia (Acute) PSVT (paroxysmal supraventricular tachycardia) (Acute) SVT (supraventricular tachycardia) (Acute) Sleep apnea (Acute) Condition: Stable - Instructions Referrals: Ron Perez MD [Primary Care Provider] - - Home Medications Comprehensive Discharge Medication List: Ambulatory Orders Amlodipine Besylate [Norvasc -] 10 mg PO DAILY 05/17/18 This patient is new to me today: Yes Date on this admission: 05/18/18 Emergency Visit: Yes ED Registration Date: 05/17/18 Care time: The patient presented to the Emergency Department on the above date and was hospitalized for further evaluation of their emergent condition. Critical Care patient: No - Discharge Referral Referred to [facility] Med P.C.: No
[2018-05-18 18:45] VITALS: PULSE 87; TEMP 98.5
[2018-05-18 18:46] VITALS: BP 125/79
[2018-05-18] MEDS ORDERED: SENNOSIDES 8.6MG TABLET (FP) PO SCH (22:00)
[2018-05-18] MEDS ORDERED: ATORVASTATIN CA 20 MG TABLET (FP) PO SCH (22:00)
--- NOTE | 2018-05-19 02:39 | EKG ---
Test Reason : Blood Pressure : / mmHG Vent. Rate : 199 BPM Atrial Rate : 208 BPM P-R Int : 000 ms QRS Dur : 082 ms QT Int : 242 ms P-R-T Axes : 000 -07 261 degrees QTc Int : 440 ms POOR DATA QUALITY, INTERPRETATION MAY BE ADVERSELY AFFECTED SUPRAVENTRICULAR TACHYCARDIA WITH OCCASIONAL PREMATURE VENTRICULAR COMPLEXES ABNORMAL ECG WHEN COMPARED WITH ECG OF 22-SEP-2017 19:56, SIGNIFICANT CHANGES HAVE OCCURRED Confirmed by MARLEEN DALY, ANITRA ([id number]) on 05/19/2018 2:38:49 AM Referred By: Gaudencio Greenberg Confirmed By:ANITRA HAWLEY MD
== END 2018-05-18 18:50 | disposition home or self-care (01) | DRG 201 ==
LOC: FER 18:01 → FM/S 18:48
PROVIDERS: ADMIT Internal Medicine; ATTEND Nurse Practitioner Acute Care
DX: I47.1 Supraventricular tachycardia (principal); R73.9 Hyperglycemia, unspecified; E78.5 Hyperlipidemia, unspecified; E66.9 Obesity, unspecified; Z68.37 Body mass index [BMI] 37.0-37.9, adult; R74.8 Abnormal levels of other serum enzymes; R07.9 Chest pain, unspecified; J06.9 Acute upper respiratory infection, unspecified; I10 Essential (primary) hypertension; G47.30 Sleep apnea, unspecified
CPT/HCPCS: 36415; 71045-TC-FY; 80053; 80061; 82550; 83036; 83721; 83735; 84100; 84484; 85025; 85610; 85730; 87040; 93005; 93306-TC; 99284-25; J1644

== ENCOUNTER 2018-06-17 11:23 | Emergency (ER) | payer OTHER ==
--- NOTE | 2018-06-17 11:32 | PDOC ---
History of Present Illness - General Chief Complaint: Pain Stated Complaint: LEFT TOE PAIN Time Seen by Provider: 06/17/18 11:32 History Source: Patient Exam Limitations: No Limitations - History of Present Illness Initial Comments: 06/17/18 12:00 Pt presents to the ED complaining of a ten day history of worsening L great toe pain. Denies injury. Pain is sharp, severe, worsened by wearing shoes or walking and similar to previous episodes of gout. Denies fever, nausea, vomiting or other signs of systemic infection. Patient has been seen in urgent care 3 days ago for the same complaint and was treated with indomethecin, which did not relieve his symptoms. He attempted to see his PMD, who was not available, so he came to the ED. Past History - Past Medical History Allergies/Adverse Reactions: Allergies Allergy/AdvReac Type Severity Reaction Status Date / Time No Known Allergies Allergy Verified 05/17/18 18:03 Home Medications: Ambulatory Orders Amlodipine Besylate [Norvasc -] 10 mg PO DAILY 05/17/18 Aspirin [Aspirin EC] 81 mg PO DAILY 06/17/18 Indomethacin [Indocin -] 50 mg PO BID 06/17/18 Lidocaine 4% Topical [Xylocaine 4% Topical -] 1 applic MM BID #1 btl 06/17/18 Naproxen 500 mg PO BID PRN #20 tablet 06/17/18 Anemia: No Asthma: No Cancer: No Cardiac Disorders: No CVA: No COPD: No CHF: No Dementia: No Diabetes: No GI Disorders: Yes (DIVERTICULITIS-HOSPITALIZED 10/13) Disorders: No HTN: Yes (RECENTLY PLACED ON MEDICATION,DOESN'T REMEMBER NAME) Hypercholesterolemia: No Liver Disease: No Seizures: No Thyroid Disease: No - Surgical History Abdominal Surgery: No Appendectomy: No Cardiac Surgery: No Cholecystectomy: No Lung Surgery: No Neurologic Surgery: No Orthopedic Surgery: No - Suicide/Smoking/Psychosocial Hx Smoking History: Never smoked Have you smoked in the past 12 months: No Number of Cigarettes Smoked Daily: 0 Hx Alcohol Use: Yes (OCASIONAL) Drug/Substance Use Hx: No Substance Use Type: Alcohol Hx Substance Use Treatment: No Review of Systems - Review of Systems Able to Perform ROS?: Yes Is the patient limited Tajik proficient: No Constitutional: No: Symptoms Reported, See HPI, Chills, Diaphoresis, Fever, Loss of Appetite, Malaise, Night Sweats, Weakness, Weight Stable, Unintentional Wgt. Loss, Unexplained wgt Loss, Other Musculoskeletal: Yes: Gout, Joint Pain *Physical Exam - Physical Exam Comments: 06/17/18 12:08 General: pt is alert and oriented x 3 and in no acute distress Ext: R great toe--+ mild erythema and tenderness, worst at the pip joint. Full rom. intact cap refill. No ecchymosis, deformity or signs of cellulitis. Medical Decision Making - Medical Decision Making 06/17/18 12:10 Pt presents to the ED complaining of L great toe pain similar to previous episodes of gout. No signs of cellulitis or septic arthritis. Will treat with naproxen and topical lidocaine and advise follow up with PMD on Wednesday. *DC/Admit/Observation/Transfer Diagnosis at time of Disposition: Gout Qualifiers: Gout site: toe Gout etiology: idiopathic Chronicity: acute Laterality: left Qualified Code(s): M10.072 - Idiopathic gout, left ankle and foot - Discharge Dispostion Disposition: HOME Condition at time of disposition: Good Decision to Admit order: No - Prescriptions Prescriptions: Lidocaine 4% Topical [Xylocaine 4% Topical -] 1 applic MM BID #1 btl Naproxen 500 mg PO BID PRN #20 tablet PRN Reason: Pain - Referrals Referrals: Ron Perez MD [Primary Care Provider] - - Patient Instructions Printed Discharge Instructions: DI for Gout Additional Instructions: You came to the ED for pain in your big toe, which is most likely caused by gout. I have prescribed two medicines for pain. DO not take the naproxen pills with the indomethecin. Return to the ED for fever, worsening redness and swelling, redness and swelling that extend to the foot or ankle, other new or worsening symptoms. Call Dr Perez on Wednesday to make a follow up appointment. - Post Discharge Activity
[2018-06-17 11:51] VITALS: BP 142/90; PULSE 86; TEMP 97.9; BMI 37.0
== END 2018-06-17 12:19 | disposition home or self-care (01) ==
LOC: FER 11:23
DX: M10.072 Idiopathic gout, left ankle and foot (principal); I10 Essential (primary) hypertension
CPT/HCPCS: 99282-25

== ENCOUNTER 2018-08-15 10:02 | Day surgery (SDC) | payer OTHER ==
[2018-08-08 15:13] VITALS: BMI 33.9
[2018-08-15] MEDS ORDERED: PROPOFOL 20 ML ONE ×2 (10:51)
[2018-08-15 12:03] VITALS: TEMP 98
[2018-08-15 12:24] VITALS: BP 129/74; PULSE 64
--- NOTE | 2018-08-18 11:19 | PATH ---
Surgical Pathology Report Patient Name: BENJA ESCAMILLA [facility]. Rec. #: [id number] /Age/Gender: 1965 (Age: 53) / M Account: [id number] Location: [facility] Taken: 08/15/2018 Received: 08/15/2018 Reported: 08/18/2018 Physicians: Francisco J Cross M.D. Specimen(s) Received A: SIGMOID COLON POLYP BX B: HOT SNARE POLYPECTOMY SIGMOID COLON Clinical History Postoperative diagnosis: Polyps, diverticulosis Final Diagnosis A. SIGMOID COLON, POLYP, BIOPSY: GRANULATION TISSUE POLYP. B. SIGMOID COLON, HOT SNARE POLYPECTOMY: HYPERPLASTIC POLYP. Electronically Signed Merlyn Sharif M.D. Gross Description A. Received in formalin, labeled "bx polyp sigmoid colon" are 2 nicole, irregular portions of soft tissue measuring 0.1 and 0.3 cm. in greatest dimension. The specimens are submitted in toto in one cassette. B. Received in formalin, labeled "sigmoid polypectomy" are 3 nicole, irregular portions of soft tissue ranging from 0.1 - 0.2 cm in greatest dimension. The specimens are submitted in toto in one cassette. MLSZ/08/16/2018 sanml/08/16/2018
== END 2018-08-15 12:30 | disposition home or self-care (01) ==
LOC: FASU-ENDO 10:02
PROVIDERS: ATTEND Internal Medicine Gastroenterology
PROC: 0DBN8ZX Excision of Sigmoid Colon, Via Natural or Artificial Opening Endoscopic, Diagnostic (ICD-10-PCS; 2018-08-15)
PROC: 3E0H8GC Introduction of Other Therapeutic Substance into Lower GI, Via Natural or Artificial Opening Endoscopic (ICD-10-PCS; 2018-08-15)
PROC: 0DBN8ZX Excision of Sigmoid Colon, Via Natural or Artificial Opening Endoscopic, Diagnostic (ICD-10-PCS; principal; 2018-08-15 11:20)
DX: Z86.010 Personal history of colon polyps (principal); K57.30 Diverticulosis of large intestine without perforation or abscess without bleeding; K51.40 Inflammatory polyps of colon without complications
CPT/HCPCS: 88305-TC

== ENCOUNTER 2019-02-15 14:45 | Emergency (ER) | payer OTHER ==
--- NOTE | 2019-02-15 14:51 | PDOC ---
History of Present Illness - General Chief Complaint: Pain, Acute Stated Complaint: ABD PAIN Time Seen by Provider: 02/15/19 14:50 - History of Present Illness Initial Comments: HPI: 53yo M with PMH of diverticulitis two years ago, SVT s/p ablation, HTN presenting with abdominal pain. Patient states his pain is located in his left lower quadrant. The pain started last night, is described as "sharp," and rated 8-9/10. This pain may feel like his diverticulitis but he is not sure. Denies nausea/vomiting. Last bowel movement was yesterday and was a thin brown stool without blood. Has passed flatus today. History of appendectomy as a child. Went to work today but felt poorly enough to go home early. Took four tablets of motrin which dulled the pain and allowed him to sleep. Denies urinary symptoms, chest pain, or shortness of breath. No fevers, but endorsing chills. PCP: Dr. Perez ROS: Constitutional: no fever, +chills HEENT: no throat pain, no dysphagia Cardiovascular: no chest pain, no palpitations Respiratory: no cough, no shortness of breath Gastrointestinal: +abdominal pain, no nausea Genitourinary: no dysuria, no hematuria Musculoskeletal: no myalgia, no arthralgia Skin: no rash, no itching Neurologic: no headache, no weakness PE: General: Awake, alert, and fully oriented, in no acute distress Head: No signs of trauma Eyes: EOMI, sclera anicteric ENT: Moist mucus membranes Neck: Normal ROM, supple Lungs: Lungs clear, Normal breath sounds Cardio: Regular rhythm, S1 and S2 present Abdomen: Tender to palpation in LLQ, soft, mild guarding, no masses, no CVA tenderness Extremities: Normal range of motion, Distal pulses present SKIN: Warm, Dry, normal turgor Neurologic: Cranial nerves II through XII grossly intact. Normal speech ED Course/MDM: DDX including but not limited to diverticulitis, abscess, SBO, nephrolithiasis, UTI Labs, EKG CT AP with IV contrast Ofirmev Fluids Zofran 02/15/19 15:45 CBC WBC 13.3 K/mm3 (4.0-10.8) H 02/15/19 15:10 RBC 5.16 M/mm3 (4.00-5.60) 02/15/19 15:10 Hgb 14.0 GM/dl (11.7-16.9) 02/15/19 15:10 Hct 42.6 % (35.4-49) 02/15/19 15:10 MCV 82.5 fl (80-96) 02/15/19 15:10 MCH 27.2 pg (25.7-33.7) 02/15/19 15:10 MCHC 32.9 g/dl (32.0-35.9) 02/15/19 15:10 RDW 13.1 % (11.9-15.9) 02/15/19 15:10 Plt Count 256 K/MM3 (134-434) 02/15/19 15:10 MPV 8.8 fl (7.5-11.1) 02/15/19 15:10 Absolute Neuts (auto) 9.6 K/mm3 02/15/19 15:10 Neutrophils % 72.0 % (42.8-82.8) 02/15/19 15:10 Lymphocytes % 19.6 % (8-40) D 02/15/19 15:10 Monocytes % 6.9 % (3.8-10.2) 02/15/19 15:10 Eosinophils % 1.1 % (0-4.5) 02/15/19 15:10 Basophils % 0.4 % (0-2.0) 02/15/19 15:10 Mild leukocytosis No anemia CMP Sodium 137 mmol/L (136-145) 02/15/19 15:10 Potassium 3.8 mmol/L (3.5-5.1) 02/15/19 15:10 Chloride 104 mmol/L (98-107) 02/15/19 15:10 Carbon Dioxide 27 mmol/L (21-32) 02/15/19 15:10 Anion Gap 6 MMOL/L (8-16) L 02/15/19 15:10 BUN 17.0 mg/dl (7-18) 02/15/19 15:10 Creatinine 1.1 mg/dl (0.55-1.3) 02/15/19 15:10 Est GFR (CKD-EPI)AfAm 87.74 02/15/19 15:10 Est GFR (CKD-EPI)NonAf 75.70 02/15/19 15:10 Random Glucose 93 mg/dl (74-106) 02/15/19 15:10 Calcium 8.5 mg/dl (8.5-10) 02/15/19 15:10 Total Bilirubin 0.9 mg/dl (0.2-1) 02/15/19 15:10 AST 14 U/L (15-37) L 02/15/19 15:10 ALT 18 U/L (13-61) 02/15/19 15:10 Alkaline Phosphatase 78 U/L (45-117) 02/15/19 15:10 Total Protein 6.6 g/dl (6.4-8.2) 02/15/19 15:10 Albumin 3.7 g/dl (3.4-5.0) 02/15/19 15:10 Electrolytes unremarkable Cr normal No transaminitis EKG: rate 82, QTc 446, NSR, isolated flattened twave in lead III also present in previous EKG 09/22/17 02/15/19 15:49 CT, as read by radiology: "EXAM#: TYPE/EXAM: RESULT: [id number] CT/ABDOMEN PELVIS CT WITH CONTR HISTORY PROVIDED: Left lower quadrant pain. Sequential axial images were obtained from the domes of the diaphragms through the symphysis pubis following the administration of intravenous contrast material. The lung bases are clear. The liver, spleen, pancreas, adrenal glands and kidneys demonstrate no significant abnormalities. The gallbladder is clear. There is no evidence of intra-abdominal or retroperitoneal lymphadenopathy or fluid collections. There is no evidence of pneumoperitoneum, bowel obstruction or intra-abdominal abscess. There is no evidence of acute appendicitis. There is thickening and irregularity of the proximal sigmoid colon within the left lower quadrant anteriorly. Inflammatory changes are identified in this location. There are also multiple diverticula present and this appearance is consistent with acute diverticulitis. No abscess has developed at this time. Clinical correlation and follow-up is recommended. Examination of the pelvis demonstrates no evidence of pelvic masses, fluid collections or lymphadenopathy. There is no evidence of acute bony pathology. IMPRESSION: Findings consistent with acute diverticulitis of the proximal sigmoid colon without abscess formation. Clinical correlation and follow-up recommended. Please see above discussion. Reported By: Jan Hawk MD 02/15/19 4915 " Will treat with bactrim and flagyl Prescription sent to pharmacy Patient states pain is controlled Referral to general surgery given this is the second diverticulitis exacerbation Return precautions To be discharged 02/15/19 17:06 Past History - Past Medical History Allergies/Adverse Reactions: Allergies Allergy/AdvReac Type Severity Reaction Status Date / Time No Known Allergies Allergy Verified 08/08/18 15:04 Home Medications: Ambulatory Orders Amlodipine Besylate/Benazepril [Amlodipine-Benazepril 10-20 mg] 1 each PO DAILY 11/03/18 Sulfamethoxazole/Trimethoprim [Bactrim Ds Tablet] 1 each PO BID #20 tablet 02/15 metroNIDAZOLE [Flagyl -] 500 mg PO TID #30 tablet 02/15/19 Anemia: No Asthma: No Cancer: No Cardiac Disorders: Yes (increased HR-ablation ) CVA: No COPD: No CHF: No Dementia: No Diabetes: No GI Disorders: Yes (DIVERTICULITIS-HOSPITALIZED 10/13) Disorders: No HTN: Yes Hypercholesterolemia: No Liver Disease: No Seizures: No Thyroid Disease: No - Surgical History Abdominal Surgery: No Appendectomy: Yes Cardiac Surgery: Yes (Ablation) Cholecystectomy: No Lung Surgery: No Neurologic Surgery: No Orthopedic Surgery: No - Psycho Social/Smoking Cessation Hx Smoking History: Never smoked Have you smoked in the past 12 months: No Number of Cigarettes Smoked Daily: 0 Hx Alcohol Use: Yes (OCASIONAL) Drug/Substance Use Hx: No Substance Use Type: Alcohol Hx Substance Use Treatment: No ED Treatment Course - LABORATORY CBC & Chemistry Diagram: 02/15/19 15:10 02/15/19 15:10 Discharge - Discharge Information Problems reviewed: Yes Clinical Impression/Diagnosis: Diverticulitis Condition: Improved Disposition: HOME - Additional Discharge Information Prescriptions: metroNIDAZOLE [Flagyl -] 500 mg PO TID #30 tablet Sulfamethoxazole/Trimethoprim [Bactrim Ds Tablet] 1 each PO BID #20 tablet - Follow up/Referral Referrals: Paul Santoro MD [Staff Physician] - - Patient Discharge Instructions Patient Printed Discharge Instructions: DI for Diverticulitis Additional Instructions: You came to the emergency department for abdominal pain. CT scan showed you have diverticulitis, an infection in part of your intestine. Antibiotics prescription sent to your pharmacy. Take as instructed. You can take gkby-[id number]-[id number] aleve, motrin, or tylenol for pain. Follow the instructions on the medication bottle. Please review the handout about avoiding certain foods to prevent another flare- up. Follow up with your primary care physician in 2-3 days. Call today or tomorrow morning and make an appointment. Your workup is not complete until you do so. We have referred you to a general surgeon. Call and make an appointment. RETURN if: you develop high fevers, severe pain, constipation, intractable vomiting, are unable to take your antibiotics, or develop any new or concerning symptoms. - Post Discharge Activity
[2019-02-15 14:58] VITALS: BMI 35.2
[2019-02-15] MEDS ORDERED: ONDANSETRON 4 MG/2 ML VIAL IVPB ONE (15:26)
[2019-02-15] MEDS ORDERED: SODIUM CHLORIDE 1,000 ML IV STA (15:26)
[2019-02-15] MEDS ORDERED: ACETAMINOPHEN 1000 MG/100 ML VIAL (NON FORMULARY) IVPB ONE (15:26)
[2019-02-15 15:32] LABS: MEAN PLT VOLUME 8.8 fl (7.5-11.1)
--- NOTE | 2019-02-15 15:34 | PDOC ---
Attending Attestation - Resident Resident Name: Alessia Moscoso - ED Attending Attestation I have performed the following: I have examined & evaluated the patient, The case was reviewed & discussed with the resident, I agree w/resident's findings & plan, Exceptions are as noted - HPI HPI: 02/15/19 15:33 53 M with h/o diverticulitis, HTN, presenting to ED with LLQ pain x 1 day. Pt states it began last night and persisted through today. Denies N/V. Denies diarrhea/constipation. Endorses chills w/o fever. States this feels very similar to his previous episode of diverticulitis. Denies dysuria. Denies CP/ SOB. Denies flank pain. - Physicial Exam PE: 02/15/19 15:34 "GENERAL: Awake, alert, and fully oriented, in no acute distress. HEAD: No signs of trauma EYES: PERRLA, EOMI, sclera anicteric, conjunctiva clear ENT: Auricles normal inspection, hearing grossly normal, nares patent, oropharynx clear without exudates. Moist mucosa NECK: Nontender, no stepoffs, Normal ROM, supple, no lymphadenopathy, JVD, or masses LUNGS: Breath sounds equal, clear to auscultation bilaterally. No wheezes, and no crackles HEART: Regular rate and rhythm, normal S1 and S2, no murmurs, rubs or gallops ABDOMEN: + LLQ TTP, normoactive bowel sounds. No guarding, no rebound. No masses EXTREMITIES: Normal range of motion, no edema. No clubbing or cyanosis. No cords, erythema, or tenderness NEUROLOGICAL: Cranial nerves II through XII intact. 5/5 strength and sensation in all extremities, Normal speech, normal gait, normal cerebellar function SKIN: Warm, Dry, normal turgor, no rashes or lesions noted. - Medical Decision Making 02/15/19 15:34 53 M with LLQ pain, r/o diverticulitis. - Labs, UA - CTAP - IVF, tylenol 02/15/19 16:50 CT shows diverticulitis, no abscess/perf Labs unremarkable Pt reports pain is well controlled. Tolerating PO Pt is well appearing, with normal vitals. Clinically stable for DC at this time. I discussed the physical exam findings, ancillary test results and final diagnoses with the patients family. I answered all of their questions. The family was satisfied with the care received and felt comfortable with the discharge plan and treatment plan. They agree to follow up with the primary care physician within 24-72 hours.
[2019-02-15 15:35] LABS: BASO % 0.4 % (0-2.0); EOS % 1.1 % (0-4.5); HEMATOCRIT 42.6 % (35.4-49); LYMPH % 19.6 % (8-40); MCH 27.2 pg (25.7-33.7); MCHC 32.9 g/dl (32.0-35.9); MEAN CELL VOLUME 82.5 fl (80-96); MONO % 6.9 % (3.8-10.2); PLATELET COUNT 256 K/MM3 (134-434); RBC 5.16 M/mm3 (4.00-5.60); RDW 13.1 % (11.9-15.9); WHITE BLOOD COUNT 13.3 K/mm3 (4.0-10.8)
[2019-02-15] MEDS ORDERED: ONDANSETRON 4 MG/2 ML VIAL ONE (15:39)
[2019-02-15] MEDS ORDERED: ACETAMINOPHEN INJECTION 100 ML IVPB ONE (15:39)
[2019-02-15 15:40] LABS: ALBUMIN 3.7 g/dl (3.4-5.0); BILIRUBIN,TOTAL 0.9 mg/dl (0.2-1); CALCIUM 8.5 mg/dl (8.5-10); CREATININE 1.1 mg/dl (0.55-1.3); POTASSIUM 3.8 mmol/L (3.5-5.1); TOT PROT 6.6 g/dl (6.4-8.2)
[2019-02-15 15:49] LABS: INR 1.28 (0.82-1.09); PROTHROMBIN TIME (PATIENT) 14.3 SEC (10.2-13.0)
[2019-02-15 16:41] VITALS: BP 140/90; PULSE 84; TEMP 98.2
[2019-02-15] MEDS ORDERED: metroNIDAZOLE 500 MG TABLET PO ONE (16:54)
[2019-02-15] MEDS ORDERED: SULFAMETHOXAZOLE/TRIMETHOPRIM 800MG/160MG D.S. TABLET PO ONE (16:54)
[2019-02-15] MEDS ORDERED: SULFAMETHOXAZOLE/TRIMETHOPRIM 800MG/160MG D.S. TABLET ONE (17:01)
[2019-02-15] MEDS ORDERED: metroNIDAZOLE 250 MG TABLET ONE (17:02)
--- NOTE | 2019-02-16 12:41 | EKG ---
Test Reason : Blood Pressure : / mmHG Vent. Rate : 082 BPM Atrial Rate : 082 BPM P-R Int : 146 ms QRS Dur : 096 ms QT Int : 382 ms P-R-T Axes : 057 -12 018 degrees QTc Int : 446 ms NORMAL SINUS RHYTHM NORMAL ECG WHEN COMPARED WITH ECG OF 17-MAY-2018 18:19, PREMATURE VENTRICULAR COMPLEXES ARE NO LONGER PRESENT VENT. RATE HAS DECREASED BY 117 BPM T WAVE INVERSION NO LONGER EVIDENT IN INFERIOR LEADS T WAVE INVERSION NO LONGER EVIDENT IN LATERAL LEADS Confirmed by CUCO MI MD ([id number]) on 02/16/2019 12:40:42 PM Referred By: MI Confirmed By:CUCO MI MD
== END 2019-02-15 17:11 | disposition home or self-care (01) ==
LOC: FER 14:45
PROC: 3E033NZ Introduction of Analgesics, Hypnotics, Sedatives into Peripheral Vein, Percutaneous Approach (ICD-10-PCS; principal; 2019-02-15)
PROC: 3E033GC Introduction of Other Therapeutic Substance into Peripheral Vein, Percutaneous Approach (ICD-10-PCS; 2019-02-15)
DX: K57.92 Diverticulitis of intestine, part unspecified, without perforation or abscess without bleeding (principal); I51.9 Heart disease, unspecified
CPT/HCPCS: 36415; 74177-TC; 80053; 81003; 85025; 85610; 85730; 87086; 93005; 96374; 96375; 99283-25; J0131; J7030; Q9967

== ENCOUNTER 2020-01-10 14:14 | Emergency (ER) | payer OTHER ==
[2020-01-10 14:29] VITALS: BP 153/94; PULSE 88; TEMP 98.4; BMI 34.2
[2020-01-10 14:41] LABS: BASO % 0.5 % (0-2.0); HEMATOCRIT 46.3 % (35.4-49); HEMOGLOBIN 15.1 GM/dl (11.7-16.9); LYMPH % 27.7 % (8-40); MCH 28.1 pg (25.7-33.7); MCHC 32.7 g/dl (32.0-35.9); MEAN PLT VOLUME 8.1 fl (7.5-11.1); MONO % 4.8 % (3.8-10.2); PLATELET COUNT 266 K/MM3 (134-434); RBC 5.38 M/mm3 (4.00-5.60); RDW 13.2 % (11.9-15.9); WHITE BLOOD COUNT 8.7 K/mm3 (4.0-10.8)
[2020-01-10 14:56] LABS: ALBUMIN 3.8 g/dl (3.4-5.0); BILIRUBIN,TOTAL 0.5 mg/dl (0.2-1); CREATININE 1.1 mg/dl (0.55-1.3); POTASSIUM 3.8 mmol/L (3.5-5.1); TOT PROT 6.9 g/dl (6.4-8.2)
--- NOTE | 2020-01-10 15:11 | PDOC ---
History of Present Illness - General Chief Complaint: Chest Pain Stated Complaint: chest pain Time Seen by Provider: 01/10/20 14:27 - History of Present Illness Initial Comments: 01/10/20 15:43 Complaint: Recurrent chest pain HPI: Left lateral upper chest pain described as a "tightness", more in the area of the shoulder, has been awakening him from sleep at night around 4 AM. Takes Tylenol and is able to go back to sleep. No pain during the day except today, with a slight ache is lingering in the same area. No aggravation with exertion, such as walking, climbing stairs. No other conditions seem to aggravate the discomfort. He has not been doing any heavy physical labor Review of systems: No nausea, diaphoresis, shortness of breath, abdominal pain, nausea, vomiting, diarrhea, visual or focal neurologic symptoms, unsteadiness of gait. Admits mild sore throat and headache recently. Tested for COVID multiple times during the summer, when his daughter was exposed. Has been negative, with last COVID test in October. Past medical history: High blood pressure, and gout. On amlodipine and allopurinol. SVT, status post ablation, no recurrences. Followed by disease control inspector, last stress test approximately 1 to 2 years ago, negative. Social history: Unemployed, staying at home, denies tobacco alcohol or nonpres cription drugs. Fully active, stable home and family Family history: Mother of [place] thought due to a faulty valve at the age of 82. Father, brother, without early CAD. No diabetes, pulmonary disease, cancer Physical exam: Alert and oriented well-developed well-nourished no acute distress cheerful and cooperative. Dull ache is present in the left shoulder, but the patient does not feel uncomfortable Afebrile, vital signs normal HEENT normal Neck supple without bruit mass or nodes Chest clear with full breath sounds bilaterally. There is mild tenderness over the left upper rib cage in the parasternal area which reproduces his pain CV S1-S2 normal without murmur rub or gallop pulses full and symmetric no JVD or edema no bruits Abdomen soft nontender without mass organomegaly Extremities no CCE Skin clear, no rash, adequate turgor and wet mucous membranes Neurological C2 to 12 intact. Strength full and symmetric. No focal sensorimotor deficits. Gait stable and unimpaired. Assessment: Characteristics of the pain, nonexertional, only at night, suggests a musculoskeletal origin. Minimal risk factors are present for cardiac disease. Normal stress test 1 to 2 years ago. Plan: EKG and enzymes, monitoring and further evaluation depending on results. Past History - Medical History Allergies/Adverse Reactions: Allergies Allergy/AdvReac Type Severity Reaction Status Date / Time No Known Allergies Allergy Verified 01/10/20 15:13 Home Medications: Ambulatory Orders Amlodipine Besylate/Benazepril [Amlodipine-Benazepril 10-20 mg] 1 each PO DAILY 11/03/18 Allopurinol [Zyloprim -] 100 mg PO DAILY 01/10/20 Anemia: No Asthma: No Cancer: No Cardiac Disorders: Yes (increased HR-ablation ) CVA: No COPD: No CHF: No Dementia: No Diabetes: No GI Disorders: Yes (DIVERTICULITIS-HOSPITALIZED 10/13) Disorders: No HTN: Yes Hypercholesterolemia: No Liver Disease: No Seizures: No Thyroid Disease: No - Surgical History Abdominal Surgery: No Appendectomy: Yes Cardiac Surgery: Yes (Ablation) Cholecystectomy: No Lung Surgery: No Neurologic Surgery: No Orthopedic Surgery: No - Psycho-Social/Smoking History Smoking History: Never smoked Have you smoked in the past 12 months: No Number of Cigarettes Smoked Daily: 0 Information on smoking cessation initiated: No - Substance Abuse Hx (Audit-C & DAST Scrn) How often the patient has a drink containing alcohol: Monthly or less Number of drinks the patient has on a typical day: 1 or 2 Score: In Men: 4 or > Positive; In Women: 3 or > Positive: 1 Screen Result (Pos requires Nsg. Audit-10AR): Negative In the last yr the pt used illegal drug/Rx for NonMed reason: No Score: Yes response is considered Positive: 0 Screen Result (Positive result requires Nsg. DAST-10): Negative Cardiac Specific PMH - Complaint Specific PMHX Pacemaker: No *Physical Exam - Vital Signs Last Vital Signs Temp Pulse Resp BP Pulse Ox 98.4 F 88 18 153/94 98 01/10/20 14:14 01/10/20 14:14 01/10/20 14:14 01/10/20 14:14 01/10/20 14:14 ED Treatment Course - LABORATORY CBC & Chemistry Diagram: 01/10/20 14:38 01/10/20 14:33 - ADDITIONAL ORDERS Additional order review: Laboratory Results 01/10/20 01/10/20 14:33 14:33 PT with INR 12.8 INR 1.15 Sodium 134 L Potassium 3.8 Chloride 102 Carbon Dioxide 25 Anion Gap 7 L BUN 17.0 Creatinine 1.1 Est GFR (CKD-EPI)AfAm 87.13 Est GFR (CKD-EPI)NonAf 75.17 Random Glucose 128 H Calcium 9.0 Total Bilirubin 0.5 AST 21 ALT 30 Alkaline Phosphatase 85 Creatine Kinase 51 Total Protein 6.9 Albumin 3.8 01/10/20 14:38 RBC 5.38 MCV 86.0 MCHC 32.7 RDW 13.2 MPV 8.1 Neutrophils % 65.0 Lymphocytes % 27.7 D Monocytes % 4.8 Eosinophils % 2.0 D Basophils % 0.5 - RADIOLOGY Radiology Studies Ordered: Category Date Time Status CHEST X-RAY PORTABLE* [RAD] Stat Radiology 01/10/20 14:29 Completed Medical Decision Making - Medical Decision Making 01/10/20 15:55 Chest x-ray is clear. EKG normal sinus rhythm 84/min normal axes and intervals no ST-T wave changes normal EKG except for questionable borderline LVH. Labs are without significant abnormalities including normal cardiac enzymes. The most likely etiology is musculoskeletal, especially with a chest wall tenderness. 01/10/20 17:32 Patient is hemodynamically and clinically stable, to follow-up with his disease control inspector, or to return to the ER if symptoms persist or worsen. 01/10/20 17:42 Discharge - Discharge Information Problems reviewed: Yes Clinical Impression/Diagnosis: Musculoskeletal chest pain Condition: Stable Disposition: HOME - Admission No - Follow up/Referral - Patient Discharge Instructions Patient Printed Discharge Instructions: DI for Atypical Chest Pain Additional Instructions: Rest, Tylenol, pains worsen or further symptoms develop. Otherwise follow-up with your disease control inspector to further discuss your symptoms. - Post Discharge Activity
[2020-01-10 15:25] LABS: INR 1.15 (0.82-1.09); PROTHROMBIN TIME (PATIENT) 12.8 SEC (10.2-13.0)
--- NOTE | 2020-01-11 13:38 | EKG ---
Test Reason : Blood Pressure : / mmHG Vent. Rate : 084 BPM Atrial Rate : 084 BPM P-R Int : 144 ms QRS Dur : 096 ms QT Int : 370 ms P-R-T Axes : 052 -08 -02 degrees QTc Int : 437 ms NORMAL SINUS RHYTHM MINIMAL VOLTAGE CRITERIA FOR LVH, MAY BE NORMAL VARIANT BORDERLINE ECG WHEN COMPARED WITH ECG OF 15-FEB-2019 15:27, NO SIGNIFICANT CHANGE WAS FOUND Confirmed by CUCO MI MD ([id number]) on 01/11/2020 1:38:39 PM Referred By: MD SHI Confirmed By:CUCO MI MD
== END 2020-01-10 17:53 | disposition home or self-care (01) ==
LOC: FER 14:14
DX: R07.89 Other chest pain (principal)
CPT/HCPCS: 36415; 71045-TC-FY; 80053; 82550; 84484; 85025; 85610; 93005; 99285-25; C9803; U0003

== ENCOUNTER 2021-04-04 14:05 | Emergency (ER) | payer OTHER ==
[2021-04-04 14:40] VITALS: BP 160/86; PULSE 74; TEMP 98.5; BMI 34.5
[2021-04-04] MEDS ORDERED: KETOROLAC TROMETHAMINE 30 MG/1 ML VIAL IM ONE (14:47)
[2021-04-04] MEDS ORDERED: METHOCARBAMOL 500 MG TABLET PO ONE (14:48)
[2021-04-04] MEDS ORDERED: LIDOCAINE 5% TOPICAL PATCH TP ONE (14:48)
[2021-04-04] MEDS ORDERED: METHOCARBAMOL 500 MG TABLET ONE (15:09)
[2021-04-04] MEDS ORDERED: LIDOCAINE 5% TOPICAL PATCH ONE (15:10)
[2021-04-04] MEDS ORDERED: KETOROLAC TROMETHAMINE 30 MG/1 ML VIAL ONE (15:10)
[2021-04-04] MEDS ORDERED: LIDOCAINE PATCH REMOVAL MC SCH (22:00)
== END 2021-04-04 15:52 | disposition home or self-care (01) ==
LOC: FER 14:05
PROC: 3E0233Z Introduction of Anti-inflammatory into Muscle, Percutaneous Approach (ICD-10-PCS; principal; 2021-04-04)
DX: M54.50 Low back pain, unspecified (principal)
CPT/HCPCS: 99283-25

== ENCOUNTER 2021-07-19 12:48 | Emergency (ER) | payer OTHER ==
[2021-07-19 12:58] VITALS: BP 129/82; PULSE 94; TEMP 98.5; BMI 34.5
[2021-07-19] MEDS ORDERED: DIPHTH,PERTUSS(ACELL),TET 0.5 ML DISP.SYRIN IM ONE ×2 (13:27→13:28)
== END 2021-07-19 13:35 | disposition home or self-care (01) ==
LOC: FER 12:48
PROC: 3E0234Z Introduction of Serum, Toxoid and Vaccine into Muscle, Percutaneous Approach (ICD-10-PCS; principal; 2021-07-19)
DX: S61.012A Laceration without foreign body of left thumb without damage to nail, initial encounter (principal); W29.3XXA Contact with powered garden and outdoor hand tools and machinery, initial encounter
CPT/HCPCS: 90471; 90715; 99284-25

== ENCOUNTER 2021-07-26 10:24 | Emergency (ER) | payer OTHER ==
[2021-07-26 10:30] VITALS: BP 133/83; PULSE 94; TEMP 98.3; BMI 32.1
== END 2021-07-26 10:52 | disposition home or self-care (01) ==
LOC: FER 10:24
DX: Z48.02 Encounter for removal of sutures (principal)
CPT/HCPCS: 99281-25

== ENCOUNTER 2021-08-10 09:06 | Emergency (ER) | payer OTHER ==
[2021-08-10 09:14] VITALS: BMI 34.5
[2021-08-10] MEDS ORDERED: KETOROLAC TROMETHAMINE 30 MG/1 ML VIAL IVPUSH ONE (09:29)
[2021-08-10] MEDS ORDERED: KETOROLAC TROMETHAMINE 15 MG/ML VIAL ONE (09:32)
[2021-08-10 10:08] LABS: BILIRUBIN,TOTAL 0.8 mg/dl (0.2-1); CALCIUM 9.1 mg/dl (8.5-10); TOT PROT 7.4 g/dl (6.4-8.2)
[2021-08-10 10:09] LABS: HEMATOCRIT 45.5 % (35.4-49); HEMOGLOBIN 15.2 G/dL (11.7-16.9); MCHC 33.4 g/dl (32.0-35.9); MEAN CELL VOLUME 83.8 fl (80-96); MEAN PLT VOLUME 8.3 fl (7.5-11.1); PLATELET COUNT 172.7 10^3/uL (134-434); RBC 5.43 10^6/uL (4.00-5.60); RDW 14.4 % (11.9-15.9); WHITE BLOOD COUNT 3.9 10^3/uL (4.0-10.8)
[2021-08-10 10:53] LABS: EPITHELIAL CELLS RARE /hpf
[2021-08-10 10:54] LABS: AMORP URATES 2+ /hpf (NONE SEEN)
[2021-08-10] MEDS ORDERED: METHOCARBAMOL 500 MG TABLET PO ONE (11:54)
[2021-08-10] MEDS ORDERED: METHOCARBAMOL 500 MG TABLET ONE (11:58)
[2021-08-10 12:12] VITALS: BP 138/84; PULSE 84; TEMP 99.1
[2021-08-11 16:09] LABS: SARS-CoV-2 NAA Detected (Not Detected)
== END 2021-08-10 13:21 | disposition home or self-care (01) ==
LOC: FER 09:06
PROC: 3E0333Z Introduction of Anti-inflammatory into Peripheral Vein, Percutaneous Approach (ICD-10-PCS; principal; 2021-08-10)
DX: M54.50 Low back pain, unspecified (principal); R68.84 Jaw pain
CPT/HCPCS: 36415; 72100-TC-FY; 74176-TC; 80053; 81003; 81015; 82550; 84484; 85027; 87804; 93005; 99284-25; C9803-CS; U0003; U0005

== ENCOUNTER 2021-09-10 08:13 | Day surgery (SDC) | payer OTHER ==
[2021-09-08 13:38] VITALS: BMI 34.9
[2021-09-10 10:12] VITALS: TEMP 97.8
[2021-09-10 10:27] VITALS: BP 132/82; PULSE 74
== END 2021-09-10 10:27 | disposition home or self-care (01) ==
LOC: FASU-ENDO 08:13
PROVIDERS: ATTEND Internal Medicine Gastroenterology
PROC: 0DBL8ZX Excision of Transverse Colon, Via Natural or Artificial Opening Endoscopic, Diagnostic (ICD-10-PCS; 2021-09-10)
PROC: 0DBL8ZX Excision of Transverse Colon, Via Natural or Artificial Opening Endoscopic, Diagnostic (ICD-10-PCS; 2021-09-10)
PROC: 0DBN8ZX Excision of Sigmoid Colon, Via Natural or Artificial Opening Endoscopic, Diagnostic (ICD-10-PCS; principal; 2021-09-10 09:28)
DX: Z12.11 Encounter for screening for malignant neoplasm of colon (principal); D12.2 Benign neoplasm of ascending colon; D12.3 Benign neoplasm of transverse colon; D12.5 Benign neoplasm of sigmoid colon; K57.30 Diverticulosis of large intestine without perforation or abscess without bleeding; Z86.010 Personal history of colon polyps
CPT/HCPCS: 88305-TC